=== PATIENT | female | born 1960 | race Caucasian/White ===

== ENCOUNTER 2017-01-06 15:10 | Emergency (ER) | payer OTHER ==
[~2017-01-06] VITALS: Ht 167.6 cm; Wt 104.3 kg
--- NOTE | 2017-01-06 15:12 | PHYS DOC ---
Past Medical History Past Medical History: Other Additional Past Medical Histor: hernia Past Surgical History: No Surgical History Alcohol Use: None Drug Use: None Adult General Chief Complaint Chief Complaint: chest pain HPI HPI Patient is a 56 year old female who presents with substernal chest pain. She describes it as a heavy sensation/sharp that started when she was standing outside she became very diaphoretic and felt short of breath. She states her pain continue until she got nitroglycerin from EMS. She denies any chest pain or shortness of breath currently. She denies any history of cardiac workup in the past. She has had GERD type symptoms in the past of which she takes an acid azar for her symptoms. She denies these symptoms or anything like her GERD. Review of Systems Review of Systems Constitutional: Denies fever or chills [] Eyes: Denies change in visual acuity, redness, or eye pain [] HENT: Denies nasal congestion or sore throat [] Respiratory: Denies cough or shortness of breath [] Cardiovascular: No additional information not addressed in HPI [] GI: Denies abdominal pain, nausea, vomiting, bloody stools or diarrhea [] : Denies dysuria or hematuria [] Musculoskeletal: Denies back pain or joint pain [] Integument: Denies rash or skin lesions [] Neurologic: Denies headache, focal weakness or sensory changes [] Endocrine: Denies polyuria or polydipsia [] Current Medications Current Medications Current Medications Medications (Trade) Dose Ordered Sig/Elke Start Time Stop Time Status Last Admin Dose Admin Morphine Sulfate 2 mg PRN Q15MIN PRN 01/06/17 15:30 01/07/17 15:29 Allergies Allergies Allergies Coded Allergies Type Severity Reaction Last Updated Verified No Known Drug Allergies 07/04/13 No Physical Exam Physical Exam Constitutional: Well developed, well nourished, no acute distress, non-toxic appearance. [] HENT: Normocephalic, atraumatic, bilateral external ears normal, oropharynx moist, no oral exudates, nose normal. [] Eyes: PERRLA, EOMI, conjunctiva normal, no discharge. [] Neck: Normal range of motion, no tenderness, supple, no stridor. [] Cardiovascular:Heart rate regular rhythm, no murmur [] Lungs & Thorax: Bilateral breath sounds clear to auscultation [] Abdomen: Bowel sounds normal, soft, no tenderness, no masses, no pulsatile masses. [] Skin: Warm, dry, no erythema, no rash. [] Back: No tenderness, no CVA tenderness. [] Extremities: No tenderness, no cyanosis, no clubbing, ROM intact, no edema. [] Neurologic: Alert and oriented X 3, normal motor function, normal sensory function, no focal deficits noted. [] Psychologic: Affect normal, judgement normal, mood normal. [] Current Patient Data Vital Signs Vital Signs Date Time Temp Pulse Resp B/P (MAP) Pulse Ox O2 Delivery O2 Flow Rate FiO2 01/06/17 17:12 99 20 109/63 (78) 92 Room Air 01/06/17 15:18 98.8 98.8 Lab Values Laboratory Tests Test 01/06/17 15:45 01/06/17 15:50 01/06/17 16:25 White Blood Count 15.5 x10^3/uL (4.0-11.0) H Red Blood Count 5.12 x10^6/uL (3.50-5.40) Hemoglobin 16.1 g/dL (12.0-15.5) H Hematocrit 46.7 % (36.0-47.0) Mean Corpuscular Volume 91 fL (79-100) Mean Corpuscular Hemoglobin 32 pg (25-35) Mean Corpuscular Hemoglobin Concent 35 g/dL (31-37) Red Cell Distribution Width 13.7 % (11.5-14.5) Platelet Count 313 x10^3/uL (140-400) Neutrophils (%) (Auto) 53 % (31-73) Lymphocytes (%) (Auto) 38 % (24-48) Monocytes (%) (Auto) 6 % (0-9) Eosinophils (%) (Auto) 1 % (0-3) Basophils (%) (Auto) 2 % (0-3) Neutrophils # (Auto) 8.2 x10^3uL (1.8-7.7) H Lymphocytes # (Auto) 5.8 x10^3/uL (1.0-4.8) H Monocytes # (Auto) 0.9 x10^3/uL (0.0-1.1) Eosinophils # (Auto) 0.2 x10^3/uL (0.0-0.7) Basophils # (Auto) 0.3 x10^3/uL (0.0-0.2) H D-Dimer (Hallie) 0.47 ug/mlFEU (0.00-0.50) Serum Test, Qualitative Negative (NEG) Urine Collection Type Unknown Urine Color Yellow Urine Clarity Clear Urine pH 5.5 Urine Specific [place] 1.025 Urine Protein 30 mg/dL (NEG-TRACE) Urine Glucose (UA) Negative mg/dL (NEG) Urine Ketones (Stick) Negative mg/dL (NEG) Urine Blood Negative (NEG) Urine Nitrite Negative (NEG) Urine Bilirubin Negative (NEG) Urine Urobilinogen Dipstick 0.2 mg/dL (0.2 mg/dL) Urine Leukocyte Esterase Negative (NEG) Urine RBC 0 /HPF (0-2) Urine WBC Occ /HPF (0-4) Urine Squamous Epithelial Cells Mod /LPF Urine Bacteria Few /HPF (0-FEW) Urine Mucus Marked /LPF Urine Opiates Screen Neg (NEG) Urine Methadone Screen Neg (NEG) Urine Barbiturates Neg (NEG) Urine Phencyclidine Screen Neg (NEG) Urine Amphetamine/Methamphetamine Neg (NEG) Urine Benzodiazepines Screen Neg (NEG) Urine Cocaine Screen Neg (NEG) Urine Cannabinoids Screen Neg (NEG) Urine Ethyl Alcohol Neg (NEG) Sodium Level 140 mmol/L (136-145) Potassium Level 4.1 mmol/L (3.5-5.1) Chloride Level 102 mmol/L (98-107) Carbon Dioxide Level 28 mmol/L (21-32) Anion Gap 10 (6-14) Blood Urea Nitrogen 17 mg/dL (7-20) Creatinine 0.9 mg/dL (0.6-1.0) Estimated GFR (Cockcroft-Gault) 64.8 Glucose Level 166 mg/dL (70-99) H Calcium Level 9.6 mg/dL (8.5-10.1) Magnesium Level 1.9 mg/dL (1.8-2.4) Total Bilirubin 0.4 mg/dL (0.2-1.0) Direct Bilirubin 0.1 mg/dL (0.0-0.2) Aspartate Amino Transferase (AST) 17 U/L (15-37) Alanine Aminotransferase (ALT) 29 U/L (14-59) Alkaline Phosphatase 97 U/L (46-116) Troponin I Quantitative < 0.017 ng/mL (0.000-0.055) FA-Bsm-E-Type Natriuretic Peptide 24 pg/mL (0-124) Total Protein 7.5 g/dL (6.4-8.2) Albumin 3.8 g/dL (3.4-5.0) Lipase 186 U/L (73-393) Thyroid Stimulating Hormone (TSH) 2.941 uIU/mL (0.358-3.74) Laboratory Tests 01/06/17 15:45 Laboratory Tests 01/06/17 16:25 EKG EKG EKG shows sinus tachycardia [address] elevations or T-wave inversions, normal axis, QTC 4:30 milliseconds, as interpreted by me. Radiology/Procedures Radiology/Procedures [facility] [address] [place] [address] IMAGING REPORT Signed PATIENT: DELMY STOREY ACCOUNT: [id number] : 1960 LOCATION: ER AGE: 56 SEX: F EXAM STATUS: REG ER ORD. PHYSICIAN: PROSPER CHINCHILLA MD REASON: chest pain, SINCE THIS AFTERNOON PROCEDURE: PORTABLE CHEST 1V Portable chest, 01/06/2017: History: Chest pain The heart size and pulmonary vascularity are normal. A calcified granuloma is present in the left base. There is mild linear scarring or atelectasis in the left base. The lungs are otherwise clear. There is no evidence of pleural fluid. IMPRESSION: Mild left basilar linear scarring or atelectasis. DICTATED and SIGNED BY: VERNELL VILLEDA MD DATE: 01/06/17 1537 CC: PROSPER CHINCHILLA MD; NO PCP ~ Impressions: Chest pain-resolved Course & Med Decision Making Course & Med Decision Making Pertinent Labs and Imaging studies reviewed. (See chart for details) Patient presented with chest pain, shortness of breath and diaphoresis that have all resolved. EKG shows sinus tachycardia and her heart rates been approximately 105 during her visit. I recommended admission for further cardiac workup and rule out. The patient states she does not want to be admitted. The risks were explained to her that she could be having a heart attack or something more serious she states she's willing to take the risk and wants to sign out AGAINST MEDICAL ADVICE. Patient was informed to return back to ER if she has any worsening pain, shortness of breath or other concerns. She is to follow-up with her primary care physician within the next few days. Patient's agreeable to the plan and signed the AMA paperwork. Dragon Disclaimer Dragon Disclaimer This electronic medical record was generated, in whole or in part, using a voice recognition dictation system. Departure Departure Impression: Primary Impression: Chest pain Disposition: 07 AGAINST MEDICAL ADVICE Condition: STABLE Referrals: ANASTACIA TORRES MD (PCP) Problem Qualifiers Primary Impression: Chest pain Chest pain type: unspecified Qualified Codes: R07.9 - Chest pain, unspecified PROSPER CHINCHILLA MD Jan 06, 2017 15:12
[2017-01-06] MEDS ORDERED: MORPHINE SULFATE 2 MG/ML DISP.SYRIN. IV/SQ PRN (15:30)
--- NOTE | 2017-01-06 15:32 | EKG ---
[facility] [address] [place] [address] Test Date: 2017-01-06 Test Time: 15:13:20 Pat Name: DELMY STOREY Department: Room: Gender: F Header Up: : 1960 Requested By: PROSPER CHINCHILLA Order Number: [id number] Reading MD: Tomasz Ha Measurements Intervals [place] Rate: 108 P: 64 RI: 134 QRS: 31 QRSD: 80 T: 66 QT: 318 QTc: 430 Interpretive Statements SINUS TACHYCARDIA LOW LIMB LEAD VOLTAGE QRS(T) CONTOUR ABNORMALITY CONSISTENT WITH INFERIOR INFARCT PROBABLY OLD ABNORMAL ECG RI6.01 No previous ECG available for comparison Electronically Signed On 01-06-2017 17:48:54 CDT by Tomasz Ha
[2017-01-06 15:53] LABS: BASO # 0.3 x10^3/uL (0.0-0.2); BASO % 2 % (0-3); EOS % 1 % (0-3); HEMATOCRIT 46.7 % (36.0-47.0); HEMOGLOBIN 16.1 g/dL (12.0-15.5); LYMPH # 5.8 x10^3/uL (1.0-4.8); LYMPH % 38 % (24-48); MEAN CORPUSCULAR HEMOGLOBIN 32 pg (25-35); MEAN CORPUSCULAR HGB CONC 35 g/dL (31-37); MEAN CORPUSCULAR VOLUME 91 fL (79-100); MONO % 6 % (0-9); NEUT % 53 % (31-73); PLATELET COUNT 313 x10^3/uL (140-400); RED BLOOD COUNT 5.12 x10^6/uL (3.50-5.40); RED CELL DISTRIBUTION WIDTH 13.7 % (11.5-14.5); WHITE BLOOD COUNT 15.5 x10^3/uL (4.0-11.0)
--- NOTE | 2017-01-06 15:57 | RAD ---
Portable chest, 01/06/2017: History: Chest pain The heart size and pulmonary vascularity are normal. A calcified granuloma is present in the left base. There is mild linear scarring or atelectasis in the left base. The lungs are otherwise clear. There is no evidence of pleural fluid. IMPRESSION: Mild left basilar linear scarring or atelectasis.
[2017-01-06 16:08] LABS: BILIRUBIN,URINE NEGATIVE (NEG); GLUCOSE,URINE NEGATIVE (NEG); NITRITE,URINE NEGATIVE (NEG); PH,URINE 5.5; PROTEIN,URINE 30 mg/dL (NEG-TRACE); UROBILINOGEN,URINE 0.2 mg/dL (0.2 mg/dL)
[2017-01-06 16:17] LABS: BARBITURATES NEG (NEG); BENZODIAZEPINES NEG (NEG); CANNABINOIDS NEG (NEG); COCAINE NEG (NEG); METHADONE NEG (NEG); OPIATES NEG (NEG); PHENCYCLIDINE NEG (NEG)
[2017-01-06 16:19] LABS: BACTERIA,URINE FEW /HPF (0-FEW); RBC,URINE 0 /HPF (0-2); SQUAMOUS EPITHELIAL CELL,UR MOD /LPF; WBC,URINE OCC /HPF (0-4)
[2017-01-06 16:33] LABS: NEG OBC SER NEG; POS OBC SER POS
[2017-01-06 16:52] LABS: CALCIUM 9.6 mg/dL (8.5-10.1); CREATININE 0.9 mg/dL (0.6-1.0); GFR 64.8; POTASSIUM 4.1 mmol/L (3.5-5.1)
[2017-01-06 16:58] LABS: ALBUMIN 3.8 g/dL (3.4-5.0); DIRECT BILIRUBIN 0.1 mg/dL (0.0-0.2); MAGNESIUM 1.9 mg/dL (1.8-2.4); TOTAL BILIRUBIN 0.4 mg/dL (0.2-1.0); TOTAL PROTEIN 7.5 g/dL (6.4-8.2)
[2017-01-06 17:12] VITALS: BP 109/63
== END 2017-01-06 17:30 | disposition left against medical advice (07) ==
LOC: ER 15:10
DX: R07.2 Precordial pain (principal); Z98.890 Other specified postprocedural states
CPT/HCPCS: 36415; 71010; 80048; 80076; 80307; 81001; 83690; 83735; 83880; 84443; 84484; 84703; 85027; 85379; 93005; 99285-25; G0479

== ENCOUNTER 2018-04-29 04:52 | Emergency (ER) | payer OTHER ==
[~2018-04-29] VITALS: Ht 165.1 cm; Wt 99.8 kg
--- NOTE | 2018-04-29 05:27 | PHYS DOC ---
Past Medical History Past Medical History: Asthma, Diabetes-Type II, High Cholesterol, Hypertension , Other Additional Past Medical Histor: hernia Past Surgical History: No Surgical History Additional Information: "1/2 PACK DAILY" 4 minutes spent counseling the patient on smoking cessation and risks of continued smoking Alcohol Use: None Drug Use: None Adult General Chief Complaint Chief Complaint: GI PROBLEM HPI HPI Patient is a 57 year old female who presents with left lower quadrant abdominal pain. This started approximately 2300 on 04/28/2018 as patient was rolling over in bed. Patient has had no previous history of this. Patient reports they gets worse with coughing, better with holding still but doesn't entirely resolve with holding still. Patient is pending a ventral hernia repair when "her sugar is under better control." Patient denies any fever, no nausea or vomiting, no change in bowel habits. Patient denies receiving any relief with acetaminophen that she took for this. Patient is on chronic NSAID use for her chronic pain issues. No additional doses of NSAIDs were used.[] Review of Systems Review of Systems Constitutional: Denies fever or chills [] Eyes: Denies change in visual acuity, redness, or eye pain [] HENT: Denies nasal congestion or sore throat [] Respiratory: Denies cough or shortness of breath [] Cardiovascular: No chest pain or palpitations[] GI: See history of present illness[] : Denies dysuria or hematuria [] Musculoskeletal: Denies back pain or joint pain [] Integument: Denies rash or skin lesions [] Neurologic: Denies headache, focal weakness or sensory changes [] Endocrine: Denies polyuria or polydipsia [] All other systems were reviewed and found to be within normal limits, except as documented in this note. Current Medications Current Medications Current Medications Medications (Trade) Dose Ordered Sig/Elke Start Time Stop Time Status Last Admin Dose Admin Hyoscyamine (Anaspaz) 0.125 mg ONCE ONCE 04/29/18 05:30 04/29/18 05:31 DC 04/29/18 05:33 0.125 MG Morphine Sulfate (Morphine Sulfate) 4 mg 1X ONCE 04/29/18 06:15 04/29/18 06:16 DC 04/29/18 06:11 4 MG Prochlorperazine Edisylate (Compazine) 5 mg 1X ONCE 04/29/18 05:30 04/29/18 05:31 DC 04/29/18 05:33 5 MG Sodium Chloride 1,000 ml @ 1,000 mls/hr 1X ONCE 04/29/18 06:15 04/29/18 07:14 04/29/18 06:12 1,000 MLS/HR Allergies Allergies Allergies Coded Allergies Type Severity Reaction Last Updated Verified No Known Drug Allergies 07/04/13 No Physical Exam Physical Exam Constitutional: Well developed, well nourished, no acute distress, non-toxic appearance. [] HENT: Normocephalic, atraumatic, bilateral external ears normal, oropharynx moist, no oral exudates, nose normal. [] Eyes: PERRLA, EOMI, conjunctiva normal, no discharge. [] Neck: Normal range of motion, no tenderness, supple, no stridor. [] Cardiovascular:Heart rate regular rhythm, no murmur [] Lungs & Thorax: Bilateral breath sounds clear to auscultation [] Abdomen: Patient has a large ventral hernia, tenderness in the left lower quadrant. No rebound, guarding, rigidity, no pulsatile masses. [] Skin: Warm, dry, no erythema, no rash. [] Back: No tenderness, no CVA tenderness. [] Extremities: No tenderness, no cyanosis, no clubbing, ROM intact, no edema. [] Neurologic: Alert and oriented X 3, normal motor function, normal sensory function, no focal deficits noted. [] Psychologic: Affect normal, judgement normal, mood normal. [] Current Patient Data Vital Signs Vital Signs Date Time Temp Pulse Resp B/P (MAP) Pulse Ox O2 Delivery O2 Flow Rate FiO2 04/29/18 06:11 96 04/29/18 06:07 95 20 161/74 (103) Room Air 04/29/18 04:52 98.6 98.6 Lab Values Laboratory Tests Test 04/29/18 05:06 04/29/18 06:06 White Blood Count 14.3 x10^3/uL (4.0-11.0) H Red Blood Count 5.27 x10^6/uL (3.50-5.40) Hemoglobin 16.4 g/dL (12.0-15.5) H Hematocrit 48.9 % (36.0-47.0) H Mean Corpuscular Volume 93 fL (79-100) Mean Corpuscular Hemoglobin 31 pg (25-35) Mean Corpuscular Hemoglobin Concent 34 g/dL (31-37) Red Cell Distribution Width 14.4 % (11.5-14.5) Platelet Count 283 x10^3/uL (140-400) Neutrophils (%) (Auto) 66 % (31-73) Lymphocytes (%) (Auto) 28 % (24-48) Monocytes (%) (Auto) 5 % (0-9) Eosinophils (%) (Auto) 1 % (0-3) Basophils (%) (Auto) 1 % (0-3) Neutrophils # (Auto) 9.5 x10^3uL (1.8-7.7) H Lymphocytes # (Auto) 4.0 x10^3/uL (1.0-4.8) Monocytes # (Auto) 0.7 x10^3/uL (0.0-1.1) Eosinophils # (Auto) 0.1 x10^3/uL (0.0-0.7) Basophils # (Auto) 0.1 x10^3/uL (0.0-0.2) Sodium Level 140 mmol/L (136-145) Potassium Level 4.1 mmol/L (3.5-5.1) Chloride Level 101 mmol/L (98-107) Carbon Dioxide Level 28 mmol/L (21-32) Anion Gap 11 (6-14) Blood Urea Nitrogen 11 mg/dL (7-20) Creatinine 0.9 mg/dL (0.6-1.0) Estimated GFR (Cockcroft-Gault) 64.5 BUN/Creatinine Ratio 12 (6-20) Glucose Level 187 mg/dL (70-99) H Calcium Level 9.9 mg/dL (8.5-10.1) Total Bilirubin 0.4 mg/dL (0.2-1.0) Aspartate Amino Transferase (AST) 12 U/L (15-37) L Alanine Aminotransferase (ALT) 26 U/L (14-59) Alkaline Phosphatase 109 U/L (46-116) Total Protein 7.8 g/dL (6.4-8.2) Albumin 3.8 g/dL (3.4-5.0) Albumin/Globulin Ratio 1.0 (1.0-1.7) Lipase 198 U/L (73-393) Urine Collection Type Unknown Urine Color Yellow Urine Clarity Clear Urine pH 5.5 Urine Specific [place] >=1.030 Urine Protein 100 mg/dL (NEG-TRACE) Urine Glucose (UA) Negative mg/dL (NEG) Urine Ketones (Stick) Negative mg/dL (NEG) Urine Blood Negative (NEG) Urine Nitrite Negative (NEG) Urine Bilirubin Small (NEG) Urine Urobilinogen Dipstick 1.0 mg/dL (0.2 mg/dL) Urine Leukocyte Esterase Negative (NEG) Urine RBC 0 /HPF (0-2) Urine WBC Occ /HPF (0-4) Urine Squamous Epithelial Cells Mod /LPF Urine Bacteria Few /HPF (0-FEW) Urine Mucus Mod /LPF Laboratory Tests 04/29/18 05:06 Laboratory Tests 04/29/18 05:06 EKG EKG [] Radiology/Procedures Radiology/Procedures [PROCEDURE: CT ABDOMEN PELVIS WO CONTRAST PQRS Compliance Statement: One or more of the following individualized dose reduction techniques were utilized for this examination: 1. Automated exposure control 2. Adjustment of the mA and/or kV according to patient size 3. Use of iterative reconstruction technique CT abdomen/pelvis without contrast 04/29/2018 5:42 AM INDICATION: Left lower quadrant abdominal pain. COMPARISON: CT abdomen/pelvis July 04, 2013 TECHNIQUE: Multiple axial CT images of the abdomen and pelvis were obtained without intravenous contrast. Coronal and sagittal reformats are provided. FINDINGS: There is a 7 mm calcified granuloma in the left lower lobe. Atelectasis is noted in the inferior lingula. Heart size is within normal limits. Evaluation of the solid abdominal viscera is limited by lack of intravenous contrast. Hypoattenuation of the hepatic parenchyma suggestive of hepatic steatosis. Spleen is not enlarged. Calcification within the spleen may represent sequela of prior granulomatous exposure. Adrenal glands, pancreas and gallbladder are normal in appearance. The abdominal aorta is normal in course and caliber. There are no pathologically enlarged lymph nodes in the abdomen and pelvis. There is no abdominal free fluid. There is no free intraperitoneal air. Moderate calcified atheromatous plaque of the abdominal aorta and pelvic vasculature is noted. Stable 3.8 cm cyst in the anterior interpolar left kidney. The kidneys are relatively symmetric in appearance. There is no suspicious renal mass within the limitations of a noncontrast examination. There is no hydronephrosis. There are no calculi within the kidneys, ureters or urinary bladder. Small and large bowel are normal in caliber. There is no evidence for bowel obstruction. There are no pericolonic inflammatory changes. A normal, nondilated appendix is visualized without adjacent inflammatory changes. There is a ventral abdominal hernia measuring 8.3 cm containing nondilated loops of small and large bowel. The cecum is located within the ventral abdominal hernia. Urinary bladder is within normal limits given degree of distention. Uterus and adnexa appear normal. No suspicious pelvic mass is identified. No suspicious osseous abnormality is identified. IMPRESSION: 1. Large ventral abdominal hernia containing nondilated loops of small and large bowel including the cecum and appendix. 2. Diffuse hepatic steatosis. 3. Mild diverticulosis.] Course & Med Decision Making Course & Med Decision Making Pertinent Labs and Imaging studies reviewed. (See chart for details) ED course: Patient arrived by EMS, was placed in there, 2R bed, and tolerated exam well. Patient received pain medicine and antiemetics while in the emergency department, was transported to and from CT scan without any complications. Patient care endorsed to Dr. Ramos at 0 600 pending complete labs and imaging reports.[] 6:50 AM: Patient care was assumed at 6 AM shift change. The patient states that she rolled over in bed and developed sharp pain in her left lower quadrant of her abdomen. The pain is now worse and with coughing. She has not had any vomiting. She has a very large ventral hernia, which she states she is anticipating getting repaired when her blood sugars are under better control, she is working with the surgery department at she states. I have reviewed the patient's labs and reexamine the patient. The large ventral hernia is soft and relatively nontender. The tenderness to palpation is localized to the left lower abdominal wall. The patient states she suspects she has pulled a muscle in her abdominal wall and I think this is a likely explanation of her symptoms. Imaging reports of been reviewed. I discussed test results with the patient, home care plan, the need for close PCP follow-up, and return precautions. Dragon Disclaimer Dragon Disclaimer This electronic medical record was generated, in whole or in part, using a voice recognition dictation system. Departure Departure Impression: Primary Impression: Abdominal pain Disposition: HOME, SELF-CARE Condition: STABLE Patient Instructions: Abdominal Pain, Hernia, Muscle Strain Additional Instructions: Ibuprofen 400-600 mg every 6 hours may help improve your symptoms. Applying a heating pad to the affected area may help improve your symptoms. The prescribed medications may cause drowsiness-use caution while taking. Follow-up with your primary care provider in the next 4-5 days for further evaluation if symptoms persist. Scripts Acetaminophen With Codeine (TYLENOL WITH CODEINE #3 TABLET) 1 Each Tablet 1 TAB PO PRN Q6HRS PRN for PAIN, #10 TAB Prov: LINDY RAMOS MD 04/29/18 KEY KEVIN DO Apr 29, 2018 05:27 LINDY RAMOS MD Apr 29, 2018 06:23
[2018-04-29] MEDS ORDERED: PROCHLORPERAZINE 10 MG/2 ML VIAL. IV ONE (05:30)
[2018-04-29] MEDS ORDERED: HYOSCYAMINE 0.125 MG TAB.RAPDIS PO ONE (05:30)
[2018-04-29 05:35] LABS: BASO # 0.1 x10^3/uL (0.0-0.2); BASO % 1 % (0-3); EOS # 0.1 x10^3/uL (0.0-0.7); EOS % 1 % (0-3); HEMATOCRIT 48.9 % (36.0-47.0); HEMOGLOBIN 16.4 g/dL (12.0-15.5); LYMPH % 28 % (24-48); MEAN CORPUSCULAR HEMOGLOBIN 31 pg (25-35); MEAN CORPUSCULAR HGB CONC 34 g/dL (31-37); MEAN CORPUSCULAR VOLUME 93 fL (79-100); MONO # 0.7 x10^3/uL (0.0-1.1); MONO % 5 % (0-9); NEUT # 9.5 x10^3uL (1.8-7.7); NEUT % 66 % (31-73); PLATELET COUNT 283 x10^3/uL (140-400); RED BLOOD COUNT 5.27 x10^6/uL (3.50-5.40); RED CELL DISTRIBUTION WIDTH 14.4 % (11.5-14.5); WHITE BLOOD COUNT 14.3 x10^3/uL (4.0-11.0)
[2018-04-29 05:46] LABS: CALCIUM 9.9 mg/dL (8.5-10.1); CREATININE 0.9 mg/dL (0.6-1.0); GFR 64.5; POTASSIUM 4.1 mmol/L (3.5-5.1)
[2018-04-29 05:52] LABS: ALBUMIN 3.8 g/dL (3.4-5.0); TOTAL BILIRUBIN 0.4 mg/dL (0.2-1.0); TOTAL PROTEIN 7.8 g/dL (6.4-8.2)
--- NOTE | 2018-04-29 06:08 | RAD ---
PQRS Compliance Statement: One or more of the following individualized dose reduction techniques were utilized for this examination: 1. Automated exposure control 2. Adjustment of the mA and/or kV according to patient size 3. Use of iterative reconstruction technique CT abdomen/pelvis without contrast 04/29/2018 5:42 AM INDICATION: Left lower quadrant abdominal pain. COMPARISON: CT abdomen/pelvis July 04, 2013 TECHNIQUE: Multiple axial CT images of the abdomen and pelvis were obtained without intravenous contrast. Coronal and sagittal reformats are provided. FINDINGS: There is a 7 mm calcified granuloma in the left lower lobe. Atelectasis is noted in the inferior lingula. Heart size is within normal limits. Evaluation of the solid abdominal viscera is limited by lack of intravenous contrast. Hypoattenuation of the hepatic parenchyma suggestive of hepatic steatosis. Spleen is not enlarged. Calcification within the spleen may represent sequela of prior granulomatous exposure. Adrenal glands, pancreas and gallbladder are normal in appearance. The abdominal aorta is normal in course and caliber. There are no pathologically enlarged lymph nodes in the abdomen and pelvis. There is no abdominal free fluid. There is no free intraperitoneal air. Moderate calcified atheromatous plaque of the abdominal aorta and pelvic vasculature is noted. Stable 3.8 cm cyst in the anterior interpolar left kidney. The kidneys are relatively symmetric in appearance. There is no suspicious renal mass within the limitations of a noncontrast examination. There is no hydronephrosis. There are no calculi within the kidneys, ureters or urinary bladder. Small and large bowel are normal in caliber. There is no evidence for bowel obstruction. There are no pericolonic inflammatory changes. A normal, nondilated appendix is visualized without adjacent inflammatory changes. There is a ventral abdominal hernia measuring 8.3 cm containing nondilated loops of small and large bowel. The cecum is located within the ventral abdominal hernia. Urinary bladder is within normal limits given degree of distention. Uterus and adnexa appear normal. No suspicious pelvic mass is identified. No suspicious osseous abnormality is identified. IMPRESSION: 1. Large ventral abdominal hernia containing nondilated loops of small and large bowel including the cecum and appendix. 2. Diffuse hepatic steatosis. 3. Mild diverticulosis. Electronically signed by: Brandy Sales MD (04/29/2018 6:04 AM) [id number]
[2018-04-29] MEDS ORDERED: IV NORMAL SALINE 1000ML BAG 1,000 ML IV ONE (06:15)
[2018-04-29] MEDS ORDERED: MORPHINE SULFATE 4 MG/ML VIAL. IV ONE (06:15)
[2018-04-29 06:16] LABS: BILIRUBIN,URINE SMALL (NEG); CLARITY,URINE CLEAR; COLOR,URINE YELLOW; NITRITE,URINE NEGATIVE (NEG); PH,URINE 5.5; PROTEIN,URINE 100 mg/dL (NEG-TRACE)
[2018-04-29 06:29] LABS: SQUAMOUS EPITHELIAL CELL,UR MOD /LPF
[2018-04-29 06:30] LABS: RBC,URINE 0 /HPF (0-2); WBC,URINE OCC /HPF (0-4)
[2018-04-29 06:31] LABS: BACTERIA,URINE FEW /HPF (0-FEW)
[2018-04-29 06:37] VITALS: BP 138/69
[2018-04-29] MEDS ORDERED: ACET-704 PO (06:54)
== END 2018-04-29 06:59 | disposition home or self-care (01) ==
LOC: ER 04:52
DX: K57.90 Diverticulosis of intestine, part unspecified, without perforation or abscess without bleeding (principal); K43.9 Ventral hernia without obstruction or gangrene; K76.0 Fatty (change of) liver, not elsewhere classified; G89.29 Other chronic pain; E78.00 Pure hypercholesterolemia, unspecified; E11.9 Type 2 diabetes mellitus without complications; I10 Essential (primary) hypertension; J45.909 Unspecified asthma, uncomplicated; F17.200 Nicotine dependence, unspecified, uncomplicated
CPT/HCPCS: 36415; 74176; 80053; 81001; 83690; 85025; 96374; 96375; 99284; J0780; J2270; J7030; 96361

== ENCOUNTER → 2020-10-23 | Outpatient (CLI) | payer OTHER ==
[~2020-10-23] MED LIST: ACET-704 PO
[2020-10-23 11:41] LABS: BASO % 0 % (0-3); EOS # 0.2 x10^3/uL (0.0-0.7); EOS % 2 % (0-3); HEMATOCRIT 46.5 % (36.0-47.0); HEMOGLOBIN 15.4 g/dL (12.0-15.5); LYMPH % 37 % (24-48); MEAN CORPUSCULAR HEMOGLOBIN 30 pg (25-35); MEAN CORPUSCULAR HGB CONC 33 g/dL (31-37); MEAN CORPUSCULAR VOLUME 90 fL (79-100); MONO # 0.7 x10^3/uL (0.0-1.1); MONO % 6 % (0-9); NEUT # 6.1 x10^3/uL (1.8-7.7); NEUT % 56 % (31-73); PLATELET COUNT 232 x10^3/uL (140-400); RED BLOOD COUNT 5.16 x10^6/uL (3.50-5.40)
[2020-10-23 12:05] LABS: ALBUMIN 3.9 g/dL (3.4-5.0); ALBUMIN/GLOBULIN RATIO 1.2 (1.0-1.7); CALCIUM 9.4 mg/dL (8.5-10.1); CREATININE 0.8 mg/dL (0.6-1.0); GFR 73.2; POTASSIUM 4.4 mmol/L (3.5-5.1); TOTAL BILIRUBIN 0.3 mg/dL (0.2-1.0); TOTAL PROTEIN 7.1 g/dL (6.4-8.2)
[2020-10-23 12:09] LABS: CHOLESTEROL/HDL RATIO 4.9; FREE T4 0.89 ng/dL (0.76-1.46); THYROID STIM HORMONE (TSH) 1.491 uIU/mL (0.358-3.74)
[2020-10-24 01:10] LABS: HEMOGLOBIN A1C 9.4 % (4.8-5.6)
== END ==
LOC: LAB 11:03
PROVIDERS: ATTEND Internal Medicine
DX: E55.9 Vitamin D deficiency, unspecified (principal); E03.9 Hypothyroidism, unspecified; E11.9 Type 2 diabetes mellitus without complications; E78.5 Hyperlipidemia, unspecified
CPT/HCPCS: 36415; 80053; 80061; 82306; 82607; 82746; 83036; 84439; 84443; 85025